=== PATIENT | female | born 1970 | race Caucasian/White ===

== ENCOUNTER 2022-03-25 07:03 | Inpatient (IN) ==
[2022-03-25] MEDS ORDERED: ONDANSETRON 4 MG/2 ML VIAL IV STA (07:34)
[2022-03-25] MEDS ORDERED: SODIUM CHLORIDE 0.9% 1,000 ML IV STA (07:34)
[2022-03-25] MEDS ORDERED: LOPERAMIDE 2 MG CAPSULE PO STA (07:34)
[2022-03-25 07:40] LABS: Basophils % 0.2 % (0.0-0.8); Eosinophils # 0.2 10*3/uL (0.0-0.87); Eosinophils % 1.1 % (0.00-10.9); Hematocrit 36.5 VOL% (35.7-47.0); Hemoglobin 12.6 GM/DL (12.0-16.0); Immature Granulocytes % 0.4 %; Immature Granulocytes Absolute 0.06 #; Lymphocytes # 0.8 10*3/uL (1.4-4.0); Lymphocytes % 4.9 % (21.3-54.2); Mean Corpuscular HGB Conc 34.5 GM/DL (32-36); Mean Platelet Volume 9.2 FL (9.6-12.0); Monocytes # 0.3 10*3/uL (0.11-0.8); Monocytes % 2.1 % (1.7-12.7); Neutrophils % 91.3 % (38.7-73.9); Platelet Count 396 T/CUMM (130-400); Red Cell Distribution Width 12.8 % (9.3-17.3); White Blood Count 16.1 T/CUMM (4-12)
[2022-03-25 07:59] LABS: Albumin 3.1 G/DL (3.4-5.0); Bilirubin,Total 0.4 MG/DL (0.20-1.00); Calcium 8.3 MG/DL (8.5-10.1); Osmolality,Calculated 275.1 MOS/KG (273-304); Potassium 4.2 MMOL/L (3.5-5.1); Total Protein 6.5 G/DL (6.4-8.2)
[2022-03-25 08:00] LABS: Eosinophils 3 % (0-10); Lymphocytes 3 % (20-55); Platelet Estimate Adequate; Total Cells Counted 100
[2022-03-25 09:07] LABS: Mucus,Urine Few /LPF (Occasional); RBC,Urine 2 /HPF (0-4); Squamous Epithelial Cell,Urine Few /HPF (0-10); Urine Appearance Clear (Clear); Urine Color Yellow (Yellow)
[2022-03-25 09:08] LABS: Bilirubin,Urine Negative (Negative); Blood, Urine Negative (Negative); Glucose,Urine (UA) Negative (Negative); Ketones,Urine Negative (Negative); Nitrite,Urine Negative (Negative); Protein,Urine Negative (Negative); Urine Specific Gravity 1.015 (1.001-1.035); Urine Urobilinogen 0.2 eU/dL (<2.0)
[2022-03-25 09:25] LABS: Barbiturates Screen,Urine Negative (Negative); Benzodiazepines Screen,Urine Negative (Negative); Cannabinoid Screen,Urine Negative (Negative); Opiate Screen,Urine Negative (Negative); Phencyclidine Screen,Urine Negative (Negative)
[2022-03-25] MEDS ORDERED: ACETAMINOPHEN 325 MG TABLET PO PRN (10:58)
[2022-03-25] MEDS ORDERED: GLUCAGON 1 MG VIAL IM PRN (10:58)
[2022-03-25] MEDS ORDERED: MAGNESIUM SULF RIDER 2 GM/50 ML PREMIX IV ONE (11:27)
[2022-03-25] MEDS ORDERED: ALBUTEROL 2.5 MG/3 ML NEB RESP TX PRN (11:45)
[2022-03-25] MEDS: INSULIN LISPRO 100 UNIT/ML SUBCUT SCH ×2 (15:13→18:01)
[2022-03-25] MEDS: SODIUM CHLORIDE 0.9% 1,000 ML IV SCH ×2 (16:20→23:21)
[2022-03-25] MEDS: CIPROFLOXACIN INJ 400 MG/200 ML PREMIX IV SCH ×2 (16:22→23:20)
[2022-03-25] MEDS: ENOXAPARIN 40 MG/0.4 ML SYRINGE SUBCUT SCH (20:39)
[2022-03-26] MEDS: INSULIN LISPRO 100 UNIT/ML SUBCUT SCH ×5 (01:46→21:30)
[2022-03-26 05:27] LABS: Basophils % 0.4 % (0.0-0.8); Eosinophils # 0.2 10*3/uL (0.0-0.87); Eosinophils % 3.6 % (0.00-10.9); Hematocrit 36.4 VOL% (35.7-47.0); Hemoglobin 12.3 GM/DL (12.0-16.0); Immature Granulocytes % 0.2 %; Immature Granulocytes Absolute 0.01 #; Lymphocytes # 1.5 10*3/uL (1.4-4.0); Lymphocytes % 29.4 % (21.3-54.2); Mean Corpuscular HGB Conc 33.8 GM/DL (32-36); Mean Corpuscular Volume 88.8 FL (87-102); Mean Platelet Volume 9.3 FL (9.6-12.0); Monocytes # 0.4 10*3/uL (0.11-0.8); Monocytes % 7.1 % (1.7-12.7); Neutrophils % 59.3 % (38.7-73.9); Platelet Count 383 T/CUMM (130-400); Red Cell Distribution Width 12.9 % (9.3-17.3); White Blood Count 4.9 T/CUMM (4-12)
[2022-03-26 05:57] LABS: Calcium 8.3 MG/DL (8.5-10.1); Osmolality,Calculated 275.7 MOS/KG (273-304); Potassium 3.7 MMOL/L (3.5-5.1); Risk Ratio 2.88; Thyroid Stimulating Hormone 0.728 uIU/ml (0.358-3.74); VLDL Cholesterol 23.6 MG/DL
[2022-03-26 06:44] LABS: Hepatitis B Core IgM Quant 0.22 Index; Hepatitis B Surface Ag Quant < 0.10 Index; Hepatitis B Surface Ag Result Non-Reactive (NonReactive); Hepatitis C Virus Ab Quant > 11.00 Index; Hepatitis C Virus Ab Result Reactive (NonReactive)
[2022-03-26] MEDS: ASPIRIN EC 81 MG TABLET PO SCH (08:28)
[2022-03-26] MEDS: PANTOPRAZOLE 40 MG VIAL IV SCH (08:29)
[2022-03-26] MEDS: SODIUM CHLORIDE 0.9% 1,000 ML IV SCH (08:29)
[2022-03-26] MEDS: ONDANSETRON 4 MG/2 ML VIAL IV PRN (13:13)
[2022-03-26] MEDS: METOCLOPRAMIDE 10 MG TABLET PO SCH ×2 (13:14→16:16)
[2022-03-26] MEDS ORDERED: POLYETHYLENE GLYCOL POWDER 255 GM BOTTLE PO ONE (18:00)
[2022-03-26] MEDS: ENOXAPARIN 40 MG/0.4 ML SYRINGE SUBCUT SCH (20:19)
[2022-03-27] MEDS ORDERED: CLORAZEPATE 7.5 MG TABLET PO PRN (02:28)
[2022-03-27] MEDS ORDERED: POLYETHYLENE GLYCOL POWDER 255 GM BOTTLE PO ONE (05:00)
[2022-03-27 06:59] LABS: Basophils % 0.6 % (0.0-0.8); Eosinophils # 0.3 10*3/uL (0.0-0.87); Eosinophils % 6.3 % (0.00-10.9); Hematocrit 33.2 VOL% (35.7-47.0); Hemoglobin 11.2 GM/DL (12.0-16.0); Immature Granulocytes % 0.2 %; Immature Granulocytes Absolute 0.01 #; Lymphocytes % 42.3 % (21.3-54.2); Mean Corpuscular HGB Conc 33.7 GM/DL (32-36); Mean Corpuscular Volume 90.2 FL (87-102); Mean Platelet Volume 9.5 FL (9.6-12.0); Monocytes # 0.5 10*3/uL (0.11-0.8); Neutrophils % 40.6 % (38.7-73.9); Platelet Count 380 T/CUMM (130-400); Red Blood Count 3.68 MC/CUMM (3.8-5.5); Red Cell Distribution Width 12.8 % (9.3-17.3); White Blood Count 4.8 T/CUMM (4-12)
[2022-03-27 07:07] LABS: INR 0.9; PT Patient Result 10.5 SECS (10.1-12.1)
[2022-03-27 07:35] LABS: Calcium 8.2 MG/DL (8.5-10.1); Potassium 3.8 MMOL/L (3.5-5.1)
[2022-03-27] MEDS ORDERED: LACTATED RINGERS 1,000 ML IV SCH (08:00)
[2022-03-27] MEDS: PANTOPRAZOLE 40 MG VIAL IV SCH (08:10)
[2022-03-27] MEDS: INSULIN LISPRO 100 UNIT/ML SUBCUT SCH ×4 (08:25→22:24)
[2022-03-27] MEDS: ONDANSETRON 4 MG/2 ML VIAL IV PRN ×2 (08:27→23:55)
[2022-03-27] MEDS: METOCLOPRAMIDE 10 MG TABLET PO SCH ×3 (09:04→16:32)
[2022-03-27] MEDS: ASPIRIN EC 81 MG TABLET PO SCH (09:05)
[2022-03-27] MEDS: DEXTROSE 10% 250 ML BAG IV PRN ×2 (09:51→10:48)
[2022-03-27] MEDS: SODIUM CHLORIDE 0.9% 1,000 ML IV SCH ×3 (12:24→22:25)
[2022-03-27] MEDS ORDERED: propofoL 200 MG/20 ML VIAL IV ONE ×2 (12:46→12:53)
[2022-03-27] MEDS ORDERED: LIDOCAINE 2% 5 ML VIAL ONE (12:46)
[2022-03-27] MEDS ORDERED: PHENYLEPHRINE 1 MG/10 ML SYRINGE IV ONE (12:50)
[2022-03-27] MEDS: ENOXAPARIN 40 MG/0.4 ML SYRINGE SUBCUT SCH (22:24)
[2022-03-28] MEDS: ONDANSETRON 4 MG/2 ML VIAL IV PRN (04:16)
[2022-03-28 07:21] LABS: Basophils % 0.5 % (0.0-0.8); Eosinophils # 0.2 10*3/uL (0.0-0.87); Eosinophils % 2.8 % (0.00-10.9); Hematocrit 33.2 VOL% (35.7-47.0); Hemoglobin 11.5 GM/DL (12.0-16.0); Immature Granulocytes % 0.2 %; Immature Granulocytes Absolute 0.01 #; Lymphocytes # 1.9 10*3/uL (1.4-4.0); Lymphocytes % 33.2 % (21.3-54.2); Mean Corpuscular HGB Conc 34.6 GM/DL (32-36); Mean Corpuscular Volume 88.8 FL (87-102); Mean Platelet Volume 9.3 FL (9.6-12.0); Monocytes # 0.5 10*3/uL (0.11-0.8); Monocytes % 8.3 % (1.7-12.7); Platelet Count 380 T/CUMM (130-400); Red Blood Count 3.74 MC/CUMM (3.8-5.5); Red Cell Distribution Width 12.6 % (9.3-17.3); White Blood Count 5.8 T/CUMM (4-12)
[2022-03-28 07:38] LABS: Calcium 9.1 MG/DL (8.5-10.1); Osmolality,Calculated 277.2 MOS/KG (273-304); Potassium 4.1 MMOL/L (3.5-5.1)
[2022-03-28] MEDS: SODIUM CHLORIDE 0.9% 1,000 ML IV SCH ×2 (09:21→15:09)
[2022-03-28] MEDS: PANTOPRAZOLE 40 MG VIAL IV SCH (09:35)
[2022-03-28] MEDS: ASPIRIN EC 81 MG TABLET PO SCH (09:35)
[2022-03-28] MEDS: INSULIN LISPRO 100 UNIT/ML SUBCUT SCH ×2 (09:35→12:55)
[2022-03-28] MEDS: METOCLOPRAMIDE 10 MG TABLET PO SCH ×2 (09:35→12:17)
[2022-03-28 12:37] VITALS: BP 105/57
== END 2022-03-28 14:03 | disposition home or self-care (01) | DRG 48 ==
LOC: EDUNIT# → EDBD → N.ED 07:03 → SUATTDRO 10:58 → N.EDINP 10:58 → N.5E 13:32
PROVIDERS: ADMIT Internal Medicine; ATTEND Emergency Medicine
PROC: COLONBX (2022-03-27 12:05)